=== PATIENT | female | born 1965 | race Two or more races ===

== ENCOUNTER → 2025-07-16 | Outpatient (CLI) | payer MEDICAID, SELFPAY ==
--- NOTE | 2025-07-16 15:06 | XR_ITS ---
Examination: Venous duplex lower extremity sonogram, bilateral. Date and time of exam: July 16, 2025, 1523 hours INDICATIONS: Left leg numbness and discoloration 2 weeks, difficulty walking Technique: Multiple sonographic images of the deep venous system have been obtained. B-mode/2-D grayscale imaging of vascular structures and Doppler spectral analysis (waveforms) and color performed Both legs are examined. Findings: Deep venous systems do not demonstrate abnormal echogenicity. All visualized deep veins exhibit compressibility. All visualized deep veins exhibit augmentation. Impression: Negative for deep vein thrombosis Findings most consistent with hematoma in the inner left thigh 13.3 x 2.9 x 9.5 cm, consider MRI left thigh without contrast follow-up
--- NOTE | 2025-07-16 15:23 | XR_ITS ---
EXAMINATION: PA lateral chest 2 views TECHNIQUE: Upright PA lateral chest 2 views Date and time: July 16, 2025, 1605 hours INDICATIONS: Coughing beginning 1 month ago. FINDINGS: Normal heart size The lungs are clear. Moderate thoracic spondylosis IMPRESSION: No pneumonia or pulmonary edema
== END | disposition home or self-care (01) ==
LOC: CDIM 14:50
PROVIDERS: PCP Family Medicine; Referring Provider Student in an Organized Health Care Education/Training Program; Visit Provider Student in an Organized Health Care Education/Training Program
DX: R05.3 Chronic cough (principal); L98.8 Other specified disorders of the skin and subcutaneous tissue
CPT/HCPCS: 71046; 93970

== ENCOUNTER 2025-08-06 06:50 | Inpatient (IN) | payer MEDICAID, SELFPAY ==
[2025-08-06] VITALS (8 sets, daily range): BP systolic 132–169; BP diastolic 74–94; PULSE 63–135; RESP 14–20; TEMP 36.4–37; O2SAT 95–99; BMI 42.2
--- NOTE | 2025-08-06 07:04 | EKG_ITS ---
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
--- NOTE | 2025-08-06 07:06 | XR_ITS ---
EXAMINATION: AP chest single view TECHNIQUE: AP portable semiupright chest single view Date and time: August 06, 2025, 0748 hours, comparison July 16, 2025 INDICATIONS: Mid chest pain today FINDINGS: Mild enlargement cardiac contour Mild to moderate vascular congestion. No lobar pneumonia or katherine pulmonary edema. Moderate osteopenia IMPRESSION: Mild to moderate vascular congestion No lobar pneumonia or katherine pulmonary edema
--- NOTE | 2025-08-06 07:06 | XR_ITS ---
EXAMINATION: US venous doppler LE LT HISTORY: swelling DVT COMPARISON: None. FINDINGS: Avalos scale, color doppler, and spectral waveforms of the left lower extremity veins. The imaged veins are unremarkable without evidence of internal thrombus. Spectral Doppler imaging demonstrates normal wave forms.there is a septated 8.7 x 1.3 x 3.5 cm hypo-/anechoic lesion in the popliteal fossa without internal color Doppler signal IMPRESSION: 1. Negative for deep venous thrombosis. 2. Cystic lesion in the popliteal fossa. Differential includes but is not limited to a Guzman's cyst.
--- NOTE | 2025-08-06 07:08 | PD.EDCHEST ---
ED Chest Pain RME/HPI General Chief Complaint: Chest Pain Stated Complaint: CHEST PAIN SOB Time Seen by Provider: 08/06/25 07:01 Arrival date/time: 08/06/25 06:50 Limitations: no limitations RME / HPI MD complaint: chest pain RME / HPI narrative: Patient is a 60-year-old female with medical history notable for hypertension, diabetes states in the emergency department concerns for chest pain that woke her up this morning. Denies fevers, chills, nausea, vomiting, abdominal pain, dysuria, materia, melena, bloody stools, drugs, alcohol, smoking, recent travel, sick contacts, coughing up blood, use of hormonal medications. Patient states that she felt tightness and pressure in her chest, in the past has felt palpitations however usually go away today symptoms are not going away. Patient has noticed some swelling and pain in her left lower extremity. Related Data Home Medications ?Medication ?Instructions ?Recorded ?Confirmed ergocalciferol (vitamin D2) 1,250 1,250 mcg PO QWEEK 08/07/25 08/07/25 mcg (50,000 unit) capsule evolocumab 140 mg/mL subcutaneous 420 mg subcut QMONTH 08/07/25 08/07/25 pen injector (Repluisaa Rkick) famotidine 20 mg tablet 20 mg PO BID 08/07/25 08/07/25 lisinopril 20 mg tablet 20 mg PO QDAY 08/07/25 08/07/25 magnesium oxide 400 mg (241.3 mg 400 mg PO BID 08/07/25 08/07/25 magnesium) tablet paroxetine HCl 20 mg tablet 20 mg PO QDAY 08/07/25 08/07/25 Previous Rx's ?Medication ?Instructions ?Recorded aspirin 81 mg capsule 81 mg PO QDAY #30 caps 08/07/25 blood sugar diagnostic (Accu-Chek #100 ea 08/07/25 Guide test strips) blood-glucose meter (Accu-Chek #1 ea 08/07/25 Guide Me Glucose Meter) flecainide 100 mg tablet 100 mg PO Q12H #60 tabs 08/07/25 insulin degludec 100 unit/mL (3 10 unit (0.1 mL) subcut QDAY 30 08/07/25 mL) subcutaneous pen days #15 mL metformin 500 mg tablet,extended 500 mg PO BID #60 tabs 08/07/25 release 24 hr (Glucophage XR) pen needle, diabetic 31 gauge x #100 ea 08/07/25 1/ (CareTouch Pen Needle) Allergies Allergy/AdvReac Type Severity Reaction Status Date / Time No Known Allergies Allergy Verified 08/06/25 06:56 Review of Systems Review of Systems Systems Reviewed: All systems reviewed, normal except as documented Past Medical History Past Medical History CARDIAC: Positive Hypertension ENDOCRINE: Positive Diabetes Mellitus Type 2 (PT TAKE MOUNJARO) Social History SMOKING STATUS: Never smoker ED Exam General Limitations: Present no limitations General appearance: Present alert and in no apparent distress Head Head exam: Present atraumatic Eye Eye exam: Present normal appearance, PERRL and EOMI ENT ENT exam: Present normal exam, normal oropharynx and mucous membranes moist Neck Neck exam: Present normal inspection, full ROM and trachea midline Chest Chest inspection: Present normal inspection and symmetric chest wall rise Respiratory Respiratory exam: Present normal lung sounds bilaterally Cardiovascular Cardiovascular exam: Present regular rate, normal rhythm and normal heart sounds Abdominal Exam Abdominal exam: Present soft and normal bowel sounds Extremities Exam Extremities exam: Present normal inspection and full ROM Back Exam Back exam: Present normal inspection and full ROM Neurological Exam Neurological exam: Present alert, oriented X3 and CN II-XII intact Psychiatric Psychiatric exam: Present normal affect and normal mood Skin Skin exam: Present warm, dry, intact and normal color Course Quality Measures none Orders Category Date Time Status CT Screening NOW Care 08/06/25 07:32 Completed EKG (ED ONLY) *Do not use* NOW Care 08/06/25 07:04 Completed EKG (ED ONLY) *Do not use* NOW Care 08/06/25 07:34 Completed Notify provider NOW Care 08/06/25 11:55 Completed Consult to Cardiology Stat Cons 08/06/25 11:[address] angio chest Stat Exams 08/06/25 07:32 Completed CXR [XR chest 1V] Stat Exams 08/06/25 07:06 Completed EKG (ED Only) Stat Exams 08/06/25 07:04 Draft EKG (ED Only) Stat Exams 08/06/25 07:34 Draft US venous doppler LE LT Stat Exams 08/06/25 07:06 Completed XR shoulder RT min 2V Stat Exams 08/06/25 07:33 Completed BNP [B-Type Natriuretic Peptide] Stat Lab 08/06/25 07:28 Completed CBC Stat Lab 08/06/25 07:28 Completed CMP [Comprehensive Metabolic Panel] Stat Lab 08/06/25 07:28 Completed D-Dimer Stat Lab 08/06/25 07:28 Completed Drug Screen,Urine Stat Lab 08/06/25 08:40 Completed Free T4 (Free Thyroxine) Stat Lab 08/06/25 07:28 Completed INR [Prothrombin Time with INR] Stat Lab 08/06/25 12:10 Completed Lipase Stat Lab 08/06/25 07:28 Completed PTT [Partial Thromboplastin Time] Stat Lab 08/06/25 12:10 Completed TSH [Thyroid Stimulating Hormone] Stat Lab 08/06/25 07:28 Completed Troponin I Stat Lab 08/06/25 09:57 Completed Troponin I Stat Lab 08/06/25 12:10 Completed UA, C/S IF [Urinalysis, C/S if Indicated] Stat Lab 08/06/25 08:40 Completed Urine Culture Stat Lab 08/06/25 08:40 Completed Aspirin [Ecotrin] Med 08/06/25 07:05 Discontinued 81 mg PO X1 ONE Diltiazem Inj [Cardizem Inj] Med 08/06/25 07:46 Discontinued 10 mg IV X1 ONE Heparin Inj Med 08/06/25 11:55 Discontinued 4,000 unit IV X1 ONE Heparin/D5w 25K 250 ML Ivpb [Heparin in D5w Ivpb] Med 08/06/25 12:00 Discontinued 25,000 unit in 250 ml IV 8.962 units/kg/hr Ringers Lactated 1000 ml [Lactated Ringers] 1,000 ml Med 08/06/25 07:07 Discontinued IV 999 mls/hr fentaNYL INJ [Sublimaze Inj] Med 08/06/25 07:08 Discontinued 25 mcg IVP X1 ONE Vital Signs Vital signs: Vital Signs Temperature 98.6 F 08/06/25 06:54 Pulse Rate 97 08/06/25 06:54 Respiratory Rate 18 08/06/25 06:54 Blood Pressure 146/74 H 08/06/25 06:54 Pulse Oximetry (%) 96 08/06/25 06:54 Oxygen Delivery Method Room Air 08/06/25 06:54 Pulse ox is 96% on room air which is adequate. Chest Pain MDM Narrative MDM Narrative:: Patient is a 60-year-old female to the [facility] for concerns for chest pain pressure. Concern for ACS arrhythmia electrolyte abnormality viral syndrome pneumonia pulmonary embolus among others. Patient also with right shoulder pain secondary to trauma. Concern for fracture dislocation soft tissue injury. Ordered labs EKG chest x-ray right upper extremity shoulder x-ray as well as CT angio of the chest. Provided patient with medication for symptom relief. Patient presented in atrial fibrillation with rapid ventricular response identified on multiple EKGs, patient is hemodynamically otherwise stable, provided patient with IV diltiazem that resulted in patient heart rate improvement and symptomatic relief. This is a new diagnosis of atrial fibrillation for the patient, unclear how long patient has been in atrial fibrillation Labs with leukocytosis 12.4, no left shift, no other hematologic abnormality, dimer elevated, patient bicarb 19, BUN 42 GFR 47, glucose 212, patient not in DKA. Thyroid studies unremarkable. Urinalysis without evidence of infection. Patient drug screen is positive for fentanyl however I provided patient medication for pain relief here which was fentanyl. Chest x-ray with moderate vascular congestion. Shoulder x-ray without evidence of fracture or dislocation. EKG is interpreted by Dr. Antonieta Fuchs: 6:53a Atrial fibrillation with rapid ventricular response, heart rate 119, normal QT, nonspecific T wave changes, not a cardiac alert 743: Atrial fibrillation with RVR, heart rate 124, normal QT nonspecific T wave changes not a cardiac alert 804: Atrial fibrillation, heart rate 86, normal QT, nonspecific T wave changes not a cardiac alert, this EKG is after diltiazem. On reevaluation patient hemodynamically stable not in distress, symptoms resolved CT angio of the chest without evidence of pulmonary embolus however does have vascular congestion. BNP 105 upper limit of normal lumbar test is at 100. On reevaluation patient hemodynamically stable not in distress symptoms well-controlled. Discussed admission with the hospital service. Patient data External records reviewed:: [facility] previous records Clinical information provided by:: patient Social determinants that could affect healthcare access:: none Patient has the following chronic illnesses:: See MDM How is presenting disease/condition affected by chronic disease/condition?: exacerbated by Evaluation data The following diagnostics were reviewed and interpreted by me:: lab results, radiology exam(s) and EKG tracing(s) Lab and/or radiology exams considered but not ordered:: None Interpretation Summary: Ordering Physician: Antonieta Fuchs MD Date of Service: 08/06/25 Procedure(s): XR chest 1V Accession Number(s): [id number] cc: Royal Villegas; Nitesh Lozano MD; Antonieta Fuchs MD~ EXAMINATION: AP chest single view TECHNIQUE: AP portable semiupright chest single view Date and time: August 06, 2025, 0748 hours, comparison July 16, 2025 INDICATIONS: Mid chest pain today FINDINGS: Mild enlargement cardiac contour Mild to moderate vascular congestion. No lobar pneumonia or katherine pulmonary edema. Moderate osteopenia IMPRESSION: Mild to moderate vascular congestion No lobar pneumonia or katherine pulmonary edema Dictated By: Nitesh Lozano MD Signed By: <Electronically signed by Nitesh Lozano MD in OV> 08/06/25 0800 Ordering Physician: Antonieta Fuchs MD Date of Service: 08/06/25 Procedure(s): US venous doppler LE LT Accession Number(s): [id number] cc: Royal Villegas; Ozzy Allen MD; Antonieta Fuchs MD~ EXAMINATION: US venous doppler LE LT HISTORY: swelling DVT COMPARISON: None. FINDINGS: Avalos scale, color doppler, and spectral waveforms of the left lower extremity veins. The imaged veins are unremarkable without evidence of internal thrombus. Spectral Doppler imaging demonstrates normal wave forms.there is a septated 8.7 x 1.3 x 3.5 cm hypo-/anechoic lesion in the popliteal fossa without internal color Doppler signal IMPRESSION: 1. Negative for deep venous thrombosis. 2. Cystic lesion in the popliteal fossa. Differential includes but is not limited to a Guzman's cyst. Dictated By: Ozzy Allen MD Signed By: <Electronically signed by Ozzy Allen MD in OV> 08/06/25 0952 Ordering Physician: Antonieta Fuchs MD Date of Service: 08/06/25 Procedure(s): CT angio chest Accession Number(s): [id number] cc: Royal Villegas; Ozzy Allen MD; Antonieta Fuchs MD~ EXAMINATION: CT angio chest ORDERING PROVIDER: Antonieta Fuchs MD HISTORY: PE TECHNIQUE: Volumetric, helical CT was used to obtain a CT angiogram of the chest with intravenous contrast using pulmonary embolism protocol. Additional 2-D, 3-D, and MIPS reconstructions are created on a separate workstation and submitted for interpretation. Institutional dose reducing protocols were utilized. Imaging was obtained after the uneventful intravenous administration of 100 cc Isovue 370. RADIATION DOSE: DLP 442 mGy-cm COMPARISON: 08/06/2025, 07/16/2025, chest radiographs.. FINDINGS: PULMONARY VASCULATURE: Pulmonary artery trunk measures upper limits of normal at 3.3 cm. No pulmonary embolism identified through the segmental pulmonary arteries. AORTA AND GREAT VESSELS: Mild calcific disease ascending aorta and aortic arch. Retropharyngeal course of the common carotid arteries. Moderate narrowing of the celiac axis and SMA origin. LUNG: No pulmonary nodule. No mass. Mildly increased interstitial markings. Some heterogeneously increased primarily peripheral attenuation. PLEURAL SPACE: No pleural effusion or pneumothorax. HEART: Mild cardiomegaly. MEDIASTINUM: Moderate coronary artery calcifications. AIRWAYS: Major airways unremarkable. OTHER: No significant. CHEST WALL: Normal. UPPER ABDOMEN: Status post cholecystectomy. BONES: Subacute fracture right posterior 11th rib. IMPRESSION: 1. No CT evidence for pulmonary embolism. 2. Findings which can be seen with mild positive fluid balance. 3. Subacute fracture right posterior 11th rib. 4. Retropharyngeal course of common carotid arteries. Attention on any future head and neck surgery. Dictated By: Ozzy Allen MD Signed By: <Electronically signed by Ozzy Allen MD in [place]> 08/06/25 1004 Ordering Physician: Antonieta Fuchs MD Date of Service: 08/06/25 Procedure(s): XR shoulder RT min 2V Accession Number(s): [id number] cc: Royal Villegas; Nitesh Lozano MD; Antonieta Fuchs MD~ Examination: Shoulder, right, 3 views Technique: Shoulder AP internal rotation, AP external rotation, Y view shoulder, 3 views Exam date and time : August 06, 2025, 0752 hours INDICATIONS: Patient fell 1 week ago with injury of the shoulder, shoulder pain. FINDINGS: No shoulder fracture or dislocation No foreign body IMPRESSION: No shoulder fracture or dislocation Dictated By: Nitesh Lozano MD Signed By: <Electronically signed by Nitesh Lozano MD in OV> 08/06/25 0826 Medications / Prescriptions Medications or Prescriptions considered but not ordered:: None Medication administrations:: Medication Administration History Discontinued Medications Acetaminophen (Acetaminophen 325 Mg Tablet) 650 mg PO Q6HR PRN PRN Reason: PAIN SCALE 1-3 (mild Stop: 09/05/25 19:15 Last Admin: 08/06/25 19:23 Dose: 650 mg Documented By: WB Acetaminophen (Acetaminophen 325 Mg Tablet) 650 mg PO X1 ONE Stop: 08/07/25 00:40 Last Admin: 08/07/25 00:58 Dose: 650 mg Documented By: WB Adenosine (Adenosine Inj 3 Mg/Ml Vial) Confirm Administered Dose 6 mg .ROUTE .STK-MED ONE Stop: 08/07/25 08:13 Last Admin: 08/07/25 09:24 Dose: Not Given Documented By: CU Non-Admin Reason: Override Medication Aspirin (Aspirin Ec 81 Mg Tabec) 81 mg PO X1 ONE Stop: 08/06/25 07:06 Last Admin: 08/06/25 07:44 Dose: 81 mg Documented By: DB Atropine Sulfate (Atropine Sulf Inj 1 Mg/Ml Vial) Confirm Administered Dose 1 mg .ROUTE .STK-MED ONE Stop: 08/07/25 08:13 Last Admin: 08/07/25 09:25 Dose: Not Given Documented By: CU Non-Admin Reason: Override Medication Dextrose (Dextrose 50%-Water Inj 50 Ml Syringe) 25 ml IV Q15MIN PRN PRN Reason: BG 50-70 responsive npo pt Stop: 09/05/25 15:21 Dextrose (Dextrose 50%-Water Inj 50 Ml Syringe) 50 ml IV Q15MIN PRN PRN Reason: BG <50 OR BG <70 & pt unresponsive Stop: 09/05/25 15:21 Diltiazem HCl (Diltiazem Inj 5 Mg/Ml Vial 5 Ml) 10 mg IV X1 ONE Stop: 08/06/25 07:47 Last Admin: 08/06/25 07:50 Dose: 10 mg Documented By: EUGENIO Epinephrine HCl (Epinephrine Inj 0.1 Mg/Ml Syringe 10ml) Confirm Administered Dose 1 mg .ROUTE .STK-MED ONE Stop: 08/07/25 08:14 Last Admin: 08/07/25 09:25 Dose: Not Given Documented By: CU Non-Admin Reason: Override Medication Fentanyl Citrate (Fentanyl Cit Inj 50 Mcg/Ml Amp 2ml) 25 mcg IVP X1 ONE Stop: 08/06/25 07:09 Last Admin: 08/06/25 07:37 Dose: 25 mcg Documented By: EUGENIO Fentanyl Citrate (Fentanyl Cit Inj 50 Mcg/Ml Amp 2ml) Confirm Administered Dose 100 mcg .ROUTE .STK-MED ONE Stop: 08/07/25 08:12 Last Admin: 08/07/25 09:24 Dose: Not Given Documented By: CU Non-Admin Reason: Override Medication Flumazenil (Flumazenil Inj 0.1 Mg/Ml Vial 10 Ml) Confirm Administered Dose 1 mg .ROUTE .STK-MED ONE Stop: 08/07/25 08:13 Last Admin: 08/07/25 09:25 Dose: Not Given Documented By: CU Non-Admin Reason: Override Medication Glucagon (Glucagon Inj 1 Mg Vial) 1 mg IM Q15MIN PRN PRN Reason: BG <70, and no IV access Heparin Sodium (Porcine) (Heparin Sod Inj 5000 Unit/Ml Vial) 4,000 unit IV X1 ONE; Protocol Stop: 08/06/25 11:56 Last Admin: 08/06/25 14:05 Dose: 4,000 unit Documented By: EUGENIO Co-signed By: SUPA Comments: medication delayed due to Pharm just cleared this Med Heparin Sodium (Porcine) (Heparin Sod Inj 5000 Unit/Ml Vial) 4,000 unit IVP X1 ONE Stop: 08/06/25 21:25 Last Admin: 08/06/25 21:35 Dose: 4,000 unit Documented By: WB Co-signed By: DEBRA Heparin Sodium (Porcine) (Heparin Sod Inj 5000 Unit/Ml Vial) 4,000 unit IVP X1 ONE Stop: 08/07/25 04:23 Last Admin: 08/07/25 04:40 Dose: 4,000 unit Documented By: WB Co-signed By: Heparin Sodium (Porcine) (Heparin Sod Inj 1000 Unit/Ml Vial 10 Ml) Confirm Administered Dose 40,000 unit .ROUTE .STK-MED ONE Stop: 08/07/25 08:14 Last Admin: 08/07/25 09:27 Dose: Not Given Documented By: CU Non-Admin Reason: Override Medication Lactated Ringer's (Lactated Ringers) 1,000 mls @ 999 mls/hr IV .Q1H1M ONE Stop: 08/06/25 08:07 Last Infusion: 08/06/25 08:43 Dose: Infused Documented By: Admin: 08/06/25 07:41 Dose: 999 mls/hr Documented By: EUGENIO Heparin Sodium/Dextrose (Heparin In D5w Ivpb) 25,000 unit in 250 mls @ 10 mls/hr IV .Q24H [facility]; Protocol Stop: 08/20/25 11:59 Last Titration: 08/07/25 06:00 Dose: 0 units/kg/hr, 0 mls/hr Documented By: TEVIN Co-signed By: Titration: 08/07/25 04:39 Dose: 16.96 units/kg/hr, 18.925 mls/hr Documented By: TEVIN Co-signed By: Titration: 08/06/25 21:36 Dose: 12.96 units/kg/hr, 14.461 mls/hr Documented By: TEVIN Co-signed By: AM Admin: 08/06/25 14:06 Dose: 8.962 units/kg/hr, 10 mls/hr Documented By: EUGENIO Co-signed By: SUPA Nitroglycerin/Dextrose (Nitroglycerin In D5w Ivpb) Confirm Administered Dose 50 mg in 250 mls @ ud .ROUTE .STK-MED ONE Stop: 08/07/25 08:15 Last Admin: 08/07/25 09:27 Dose: Not Given Documented By: CU Non-Admin Reason: Override Medication Magnesium Sulfate (Magnesium Sulfate Ivpb) 2 gm in 50 mls @ 25 mls/hr IV X1 ONE Stop: 08/07/25 10:25 Last Admin: 08/07/25 12:33 Dose: 25 mls/hr Documented By: DIAMOND Sodium Chloride (Ns) 500 mls @ 100 mls/hr IV .Q5H ELPIDIO Stop: 09/06/25 08:59 Insulin Degludec (Insulin Degludec 5 Unit/0.05 Ml (Per 5 Units)) 10 unit SC QDAY ELPIDIO Stop: 09/05/25 20:59 Last Admin: 08/07/25 08:47 Dose: Not Given Documented By: DIAMOND Non-Admin Reason: @ medical lab assistant for cardiac cath Admin: 08/06/25 20:14 Dose: 10 unit Documented By: TEVIN Co-signed By: SHAYNE Insulin Human Lispro (Insulin Lispro (Admelog) 1 Unit/0.01 Ml Unit) 0 unit SC ACHS [facility]; Protocol Stop: 09/05/25 15:29 Last Admin: 08/07/25 12:19 Dose: Not Given Documented By: DIAMOND Non-Admin Reason: Per Protocol Admin: 08/07/25 08:11 Dose: Not Given Documented By: JRR Non-Admin Reason: Per Protocol Admin: 08/06/25 20:15 Dose: 3 unit Documented By: TEVIN Co-signed By: SHAYNE Admin: 08/06/25 17:00 Dose: Not Given Documented By: JRR Non-Admin Reason: Per Protocol Lidocaine HCl (Lidocaine Inj Pf 1% 30 Ml Vial) Confirm Administered Dose 30 ml .ROUTE .STK-MED ONE Stop: 08/07/25 08:14 Last Admin: 08/07/25 09:27 Dose: Not Given Documented By: CU Non-Admin Reason: Override Medication Metoprolol Tartrate (Metoprolol Tartrate Inj 1 Mg/Ml Vial 5 Ml) Confirm Administered Dose 5 mg .ROUTE .STK-MED ONE Stop: 08/07/25 08:13 Last Admin: 08/07/25 09:25 Dose: Not Given Documented By: CU Non-Admin Reason: Override Medication Midazolam HCl (Midazolam Inj 1 Mg/Ml Vial 2 Ml) Confirm Administered Dose 2 mg .ROUTE .STK-MED ONE Stop: 08/07/25 08:12 Last Admin: 08/07/25 09:24 Dose: Not Given Documented By: CU Non-Admin Reason: Override Medication Naloxone HCl (Naloxone Inj 0.4 Mg/Ml Vial) Confirm Administered Dose 0.4 mg .ROUTE .STK-MED ONE Stop: 08/07/25 08:13 Last Admin: 08/07/25 09:25 Dose: Not Given Documented By: CU Non-Admin Reason: Override Medication Ondansetron HCl (Ondansetron Inj 2 Mg/Ml Inj 2 Ml) Confirm Administered Dose 4 mg .ROUTE .STK-MED ONE Stop: 08/07/25 08:13 Last Admin: 08/07/25 09:25 Dose: Not Given Documented By: CU Non-Admin Reason: Override Medication Phenylephrine HCl (Phenylephrine Inj In Ns 100 Mcg/Ml 10 Ml Syringe) Confirm Administered Dose 1,000 mcg .ROUTE .STK-MED ONE Stop: 08/07/25 08:14 Last Admin: 08/07/25 09:27 Dose: Not Given Documented By: CU Non-Admin Reason: Override Medication Verapamil HCl (Verapamil Inj 2.5 Mg/Ml Vial 2 Ml) Confirm Administered Dose 5 mg .ROUTE .STK-MED ONE Stop: 08/07/25 08:24 Last Admin: 08/07/25 09:27 Dose: Not Given Documented By: CU Non-Admin Reason: Override Medication See above Consultations Consultation(s) initiated? (list below): Yes Consultation #1 (Physician, Specialty, Details): I spoke with hospitalist team B for admission. Time: 11:22 Consultation #2 (Physician, Specialty, Details): I spoke with hotel or motel manager Dr. Perez. Discussed patients PMHx, HPI, ED course, exam findings, labs, and radiology results. He agrees with management and Heparin. Time: 11:53 Diagnosis Chest Pain Differential Diagnosis: other Most likely diagnosis given after review of the tests above:: Chest pain, shortness of breath, elevated troponin, atrial fibrillation with rapid ventricular response Admission Indicated Admission indicated?: indicated Admission Request Was there a request for admission?: Yes Admission Attestation Admission request attestation: Discussed case with [] from Hospitalist service regarding admission. Discussed patients ED course, exam findings, labs, and radiology results. The Hospitalist [agrees,declines] to accept the patient for admission. Disposition Plan Disposition Plan: Admit Discharge Plan Plan Patient Disposition: Admit Acute Care w/in Hospital Patient condition on transfer: Stable Problem List Clinical Impression: Chest pain, Atrial fibrillation with RVR, Shortness of breath, Elevated troponin Patient/Caregiver Discharge Instructions Discharge Activity: activity as tolerated
--- NOTE | 2025-08-06 07:32 | XR_ITS ---
EXAMINATION: CT angio chest ORDERING PROVIDER: Antonieta Fuchs MD HISTORY: PE TECHNIQUE: Volumetric, helical CT was used to obtain a CT angiogram of the chest with intravenous contrast using pulmonary embolism protocol. Additional 2-D, 3-D, and MIPS reconstructions are created on a separate workstation and submitted for interpretation. Institutional dose reducing protocols were utilized. Imaging was obtained after the uneventful intravenous administration of 100 cc Isovue 370. RADIATION DOSE: DLP 442 mGy-cm COMPARISON: 08/06/2025, 07/16/2025, chest radiographs.. FINDINGS: PULMONARY VASCULATURE: Pulmonary artery trunk measures upper limits of normal at 3.3 cm. No pulmonary embolism identified through the segmental pulmonary arteries. AORTA AND GREAT VESSELS: Mild calcific disease ascending aorta and aortic arch. Retropharyngeal course of the common carotid arteries. Moderate narrowing of the celiac axis and SMA origin. LUNG: No pulmonary nodule. No mass. Mildly increased interstitial markings. Some heterogeneously increased primarily peripheral attenuation. PLEURAL SPACE: No pleural effusion or pneumothorax. HEART: Mild cardiomegaly. MEDIASTINUM: Moderate coronary artery calcifications. AIRWAYS: Major airways unremarkable. OTHER: No significant. CHEST WALL: Normal. UPPER ABDOMEN: Status post cholecystectomy. BONES: Subacute fracture right posterior 11th rib. IMPRESSION: 1. No CT evidence for pulmonary embolism. 2. Findings which can be seen with mild positive fluid balance. 3. Subacute fracture right posterior 11th rib. 4. Retropharyngeal course of common carotid arteries. Attention on any future head and neck surgery.
--- NOTE | 2025-08-06 07:33 | XR_ITS ---
Examination: Shoulder, right, 3 views Technique: Shoulder AP internal rotation, AP external rotation, Y view shoulder, 3 views Exam date and time : August 06, 2025, 0752 hours INDICATIONS: Patient fell 1 week ago with injury of the shoulder, shoulder pain. FINDINGS: No shoulder fracture or dislocation No foreign body IMPRESSION: No shoulder fracture or dislocation
--- NOTE | 2025-08-06 07:34 | EKG_ITS ---
[facility] Test Date: 2025-08-06 Pat Name: HIEU SMITH Department: Room: - Gender: Female Ice Maker: : 1965 Requested By: Antonieta Diaz Order Number: [id number] Reading MD: Antonieta Diaz Measurements Intervals [place] Rate: 96 P: HI: QRS: 22 QRSD: 96 T: 80 QT: 341 QTc: 431 Interpretive Statements ATRIAL FIBRILLATION NONSPECIFIC T-WAVE ABNORMALITY ABNORMAL RHYTHM ECG Compared to ECG 08/06/2025 07:43:22 No significant changes /store/S0/[id number].pdf
[2025-08-06] MEDS: fentaNYL CIT INJ 50 mCg/ML AMP 2ML 25 MCG IVP (07:37)
[2025-08-06] MEDS: RINGERS LACTATED 1000 ML 1,000 ML 999 ML IV (07:41)
[2025-08-06] MEDS: ASPIRIN EC 81 MG TABEC PO (07:44)
[2025-08-06] MEDS: DILTIAZEM INJ 5 MG/ML VIAL 5 ML 10 MG IV (07:50)
[2025-08-06 07:53] LABS: Basophils # (Auto) 0.0 Thou/mm3 (0.0-0.2); Basophils % (Auto) 0 % (0-2.5); Eosinophils # (Auto) 0.0 Thou/mm3 (0.0-0.5); Eosinophils % (Auto) 0 % (0-10); Hematocrit 38.5 % (36.0-46.0); Hemoglobin 12.6 g/dL (12.0-16.0); Immature Granulocytes Auto 0.10 Thou/mm3 (0.00-0.00); Lymphocytes # (Auto) 1.9 Thou/mm3 (1.0-4.8); Lymphocytes % (Auto) 15 % (10-50); Mean Corpuscular HGB Conc 32.7 g/dl (31.0-37.0); Mean Corpuscular Hemoglobin 28.6 pg (25.0-35.0); Mean Corpuscular Volume 88 fL (80-100); Monocytes # (Auto) 0.6 Thou/mm3 (0.0-0.8); Monocytes % (Auto) 5 % (0-12); Neutrophils # (Auto) 9.9 Thou/mm3 (1.8-7.7); Neutrophils % (Auto) 79 % (37-80); Nucleated Red Blood Cell # 0.00 Thou/mm3 (0.00-0.00); Nucleated Red Blood Cell % 0 /100 WBC (0); Platelet Count 342 Thou/mm3 (140-440); RDW Standard Deviation 49.5 fL (36.4-46.3); Red Blood Count 4.40 Miln/mm3 (4.00-5.20); White Blood Count 12.4 Thou/mm3 (3.6-11.0)
[2025-08-06 08:06] LABS: Alanine Aminotransferase 45 U/L (10-49); Albumin, Serum 4.5 gm/dL (3.4-4.8); Albumin/Globulin Ratio 1.7 (1.2-2.2); Alkaline Phosphatase 174 U/L (46-116); Anion Gap 14 (7-16); Aspartate Amino Transferase 20 U/L (0-34); BUN/Creatinine Ratio 32 Ratio (12-20); Bilirubin,Total 0.2 mg/dL (0.3-1.2); Blood Urea Nitrogen 42 mg/dL (9-23); Calcium 9.3 mg/dL (8.3-10.6); Calcium (Corrected) 9.3 mg/dL (8.5-10.1); Carbon Dioxide 19.0 mMol/L (20.0-31.0); Chloride 106 mMol/L (98-107); Creatinine (Component) 1.3 mg/dL (0.6-1.3); Estimated Creatinine Clearance 55.6 mL/min (>60); Free T4 (Free Thyroxine) 1.01 ng/dL (0.89-1.76); Globulin 2.6 gm/dL (2.3-3.5); Glucose 312 mg/dL (74-106); Lipase 39 U/L (12-53); Osmolality,Calculated 300 (275-295); Potassium 4.4 mMol/L (3.4-5.1); Sodium 139 mMol/L (136-145); Thyroid Stimulating Hormone 0.94 uIU/mL (0.55-4.78); Total Protein 7.1 gm/dL (5.7-8.2); eGFR 47 See Note
[2025-08-06 08:30] LABS: D-Dimer 1010 ng/mL (<600)
[2025-08-06 08:35] LABS: B-Type Natriuretic Peptide 105 pg/mL (0-100)
[2025-08-06 08:45] LABS: Collection Type, Urine Clean Catch
[2025-08-06 09:02] LABS: Amphetamine/Methamp Scrn,U Negative (Negative); Barbiturate Screen,Urine Negative (Negative); Benzodiazepines Screen,Urine Negative (Negative); Benzoylecgonine Screen, Ur Negative (Negative); Fentanyl Screen,Urine Positive (Negative); Opiate Screen,Urine Negative (Negative); THC Screen,Urine Negative (Negative)
[2025-08-06 09:22] LABS: Bilirubin,Urine Negative (Negative); Blood,Urine Negative (Negative); Clarity,Urine Clear (Clear/Hazy); Glucose, Urine 4+ (Negative); Ketones,Urine Negative (Negative); Leukocyte Esterase,Urine Negative (Negative); Nitrite,Urine Positive (Negative); PH,Urine 6.0 (5.0-7.0); Protein,Urine Negative (Neg - Trace); RBC,Urine < 1 /hpf (0-3); Specific Gravity,Urine 1.022 (1.001-1.035); Squamous Epithelial Cell,Urine 1 /hpf (0-5); Urobilinogen,Urine Negative mg/dL (0.0-1.0); WBC,Urine 2 /hpf (0-5)
[2025-08-06 09:26] LABS: Bacteria,Urine 2+; Color,Urine Lt-Yellow (Lt Yel-Yel); Culture Indicated,Urine Yes
[2025-08-06 10:49] LABS: Troponin I 0.082 ng/mL (0.0-0.045)
--- NOTE | 2025-08-06 12:04 | PC.SS ---
Patient Sue Brandt is a 60 Year old female admitted for chest pain SOB. SS met with patient at bedside to discuss discharge plan and verify demographic information. Patient reports she lives at home with her life partner. Patient reports her surrogate decision maker is her son, Doug Payne, [phone]. Patient reports she does not utilize any source of DME to assist with ambulation. Patient is able to complete all ADL's independently. Choice of pharmacy is [facility]. PCP is Royal Blake. Patient reports she was in the process of getting referred to a wrapper and preserver. At time of discharge the patient reports she will return back home. Patient's son will provide transportation. Discharge plan: Home Next of kin: Son, Doug Payne PCP Royal Blake
[2025-08-06 12:58] LABS: INR 0.9 (0.9-1.3); Partial Thromboplastin Time 23.9 Seconds (22.0-36.0); Prothrombin Time 9.9 Seconds (9.0-12.2)
[2025-08-06] MEDS: HEPARIN SOD INJ 5000 UNIT/ML VIAL 4000 UNIT IV (14:05)
[2025-08-06] MEDS: Heparin/D5w 25K 250 ML Ivpb 25,000 UNIT/250 ML BAG 10 UNIT IV (14:06)
--- NOTE | 2025-08-06 14:14 | ESCONSULT_ITS ---
<Statement entered by Ananya Perez MD - 08/09/25 15:32> Personally evaluated examined the patient with resident physician PGY 1Dr. Ozzy Best patient presented to the hospital A-fib RVR severe chest pain mild troponin elevation though significant elevation after 1.0 delta troponin elevation hence because of risk factors of CAD obesity hypertension diabetes metabolic syndrome coronary angiogram will be recommended evaluated patient with resident physician agree with the treatment plan recommendations. Continue IV heparin until echo or angiogram was performed. HPI Data of Consult Requesting Physician: Steven Baker DO Admitting Provider: Steven Baker DO Attending Provider: Steven Baker DO Primary Care Provider: Royal Villegas Consult Narrative Reason for consult: new onset afib History of present illness: History of present illness: Patient is a 60 yo F with PMH of HTN, T2DM, depression presenting to hospital for new-onset chest pain/palpitations. At approximately 4 AM today, patient began experience chest pain and palpitations that did not improve; she then came to the hospital. EKG showed A-fib with RVR, rate of 124. Was given 10mg diltiazem 1x; subsequent EKG showed continued A-fib, but with a rate of 96. On phyiscal exam, patienet reported improved pain; she also reported R arm/leg pain secondary to slip and fall accident 1 week prior. Has no history of chest pain/shortness of breath. Strong family history of CAD, with siblings and parents all having heart attacks or strokes. CXR showed no pneumonia, pulomary edema and mild/moderate vascular congestion. Venous duplex scan negative for DVT, and CTA negative for PE. Cardiology consulted secondary to new onset A-fib. PMH: HTN, T2DM, depression PSH: c section, cholescytectomy Allergies: NKDA Social history: no etoh , smoking, drugs cc:: cc: Steven Baker DO Review of Systems Review of Systems Narrative Review of Systems: General: Denies fevers or chills HEENT: Denies congestion or sore throat Heart: Endorses chest pain and palpitations Lungs: Denies shortness of breath or cough Abdomen: Denies diarrhea, nausea or vomiting, constipation, BRBPR, melena Genitourinary: Denies frequency, urgency, dysuria, hematuria Musculoskeletal: Endorses R shoulder pain Neurology: Denies numbness, tingling ROS otherwise negative except what is mentioned above. Exam Vital Signs Temp Pulse Resp BP Pulse Ox O2 Del Method 97.9 F 101 H 20 132/90 H 97 Room Air 08/06/25 10:44 08/06/25 12:09 08/06/25 12:09 08/06/25 12:09 08/06/25 12:09 08/06/25 12:09 Narrative Exam General: A/O x3, no acute distress, well-nourished, well-developed Eyes: PERRL, EOMI. Anicteric, vision grossly intact. Ears: No ear pain, no ear discharge, Hearing grossly intact. Nose: No nasal discharge. Mouth/Throat: Moist mucous membranes, no redness, no lesions. Neck: Neck supple, non-tender, no cervical lymphadenopathy. Lungs: Clear MATTY to auscultation and percussion, No accessory muscle use. Cardio: Normal S1/S2, regular rhythm, no murmurs, no JVD or carotid bruits. Abdomen: Soft, non-tender, no palpable masses, peristalsis present, no guarding or rebound. Extremities: Symmetrical, no significant deformities, no peripheral edema , non-tender, peripheral pulses present. Skin: No rashes, no lesions, warm to touch. Neuro: No focal neurological deficits. Psych: Cooperative, appropriate mood and effect. Results Labs 08/07/25 03:45 08/07/25 03:45 Labs: Short CBC 08/06/25 Range/Units 07:28 WBC 12.4 H (3.6-11.0) Thou/mm3 Hgb 12.6 (12.0-16.0) g/dL Hct 38.5 (36.0-46.0) % Plt Count 342 (140-440) Thou/mm3 BMP 08/06/25 07:28 Sodium 139 Potassium 4.4 Chloride 106 Carbon Dioxide 19.0 L BUN 42 H Creatinine 1.3 Glucose 312 H Calcium 9.3 Cardiac Enzymes 08/06/25 Range/Units 09:57 Troponin I 0.082 H* (0.0-0.045) ng/mL Liver Function 08/06/25 Range/Units 07:28 Total Bilirubin 0.2 L (0.3-1.2) mg/dL AST 20 (0-34) U/L ALT 45 (10-49) U/L Alkaline Phosphatase 174 H (46-116) U/L Albumin 4.5 (3.4-4.8) gm/dL Urine 08/06/25 Range/Units 08:40 Urine Color Lt-Yellow (Lt Yel-Yel) Urine Clarity Clear (Clear/Hazy) Urine pH 6.0 (5.0-7.0) Ur Specific [place] 1.022 (1.001-1.035) Urine Protein Negative (Neg - Trace) Urine Glucose (UA) 4+ A (Negative) Quality Measures Quality Measures none Medications Home Medications and Allergies Home Medications ?Medication ?Instructions ?Recorded ?Confirmed ?Type ergocalciferol (vitamin D2) 1,250 1,250 mcg PO QWEEK 1 10/07/24 08/07/25 History mcg (50,000 unit) capsule evolocumab 140 mg/mL subcutaneous 420 mg subcut QMONTH 08/07/25 08/07/25 History pen injector (Sangeetha Richard) famotidine 20 mg tablet 20 mg PO BID 08/07/25 History lisinopril 20 mg tablet 20 mg PO QDAY 08/07/2508/07 History magnesium oxide 400 mg (241.3 mg 400 mg PO BID 5 08/07/25 History magnesium) tablet paroxetine HCl 20 mg tablet 20 mg PO QDAY 08/07/25 History Allergies Allergy/AdvReac Type Severity Reaction Status Date / Time No Known Allergies Allergy Verified 08/06/25 06:56 Visit Medications Heparin Sodium/Dextrose (Heparin In D5w Ivpb) 25,000 unit in 250 mls @ 10 mls/hr IV .Q24H [facility]; Protocol Stop: 08/20/25 11:59 Last Admin: 08/06/25 14:06 Dose: 8.962 units/kg/hr, 10 mls/hr Discontinued Medications Aspirin (Aspirin Ec 81 Mg Tabec) 81 mg PO X1 ONE Stop: 08/06/25 07:06 Last Admin: 08/06/25 07:44 Dose: 81 mg Diltiazem HCl (Diltiazem Inj 5 Mg/Ml Vial 5 Ml) 10 mg IV X1 ONE Stop: 08/06/25 07:47 Last Admin: 08/06/25 07:50 Dose: 10 mg Fentanyl Citrate (Fentanyl Cit Inj 50 Mcg/Ml Amp 2ml) 25 mcg IVP X1 ONE Stop: 08/06/25 07:09 Last Admin: 08/06/25 07:37 Dose: 25 mcg Heparin Sodium (Porcine) (Heparin Sod Inj 5000 Unit/Ml Vial) 4,000 unit IV X1 ONE; Protocol Stop: 08/06/25 11:56 Last Admin: 08/06/25 14:05 Dose: 4,000 unit Lactated Ringer's (Lactated Ringers) 1,000 mls @ 999 mls/hr IV .Q1H1M ONE Stop: 08/06/25 08:07 Last Infusion: 08/06/25 08:43 Dose: Infused Assessment & Plan Plan Patient is a 60 yo F with PMH of HTN, T2DM, depression presenting to hospital for new-onset chest pain/palpitations. Cardiology consulted secondary to new onset A-fib. #New-onset atrial fibrillation No history of chest pain/shortness of breath. Strong family history of CAD. CXR showed no pneumonia, pulomary edema and mild/moderate vascular congestion. Venous duplex scan negative for DVT, and CTA negative for PE Troponin initially 0.082 on admission; last troponin was 0.123 Echo showed EF 60-65% EKG showed A-fib with rate 96 post diltiazem [id number] score 3, HAS-Bled score 0 Plan: Trend troponin Cardiac cath tomorrow to check for stenosis due to risk factors and increasing troponin Hold heparin at midnight NPO after midnight #Hx of Hypertension BP 146/64 on admission; latest measurement showed 142/77 Plan: Monitor BP and treat as needed #T2DM #Depression #Musculoskeletal pain #Rib fracture Per primary team This case was discussed with my attending physician, Dr. Perez. Gary Best, PGY1
[2025-08-06 14:18] LABS: Troponin I 0.123 ng/mL (0.0-0.045)
--- NOTE | 2025-08-06 14:34 | ECHO_ITS ---
Patient Info Name: Sue Brandt Age: 60 years : 1965 Gender: Female Ht: 163 cm Wt: 112 kg BSA: 2.30 m2 BP: 142 / 77 mmHg HR: 63 bpm Exam Date: 08/06/2025 3:15 PM Admit Date: 08/06/2025 Site: [facility] Room Number: ER Patient Status: I Exam Type: CA echo doppler complete Pediatric Physical Therapist: Paris Lamb Ordering Physician: Ananya Perez Study Info Indications afib chf - Primary Location: [facility] Left Ventricular Outflow Tract Name Value Normal LVOT 2D LVOT Diameter 1.8 cm LVOT Doppler LVOT Peak Velocity 117 cm/s LVOT Mean Gradient 3 mmHg LVOT VTI 32 cm LVOT VTI/AV VTI Ratio 0.6 LVOT Stroke Volume 80 ml Pulmonic Valve Name Value Normal PV Doppler PV Peak Velocity 102 cm/s Mitral Valve Name Value Normal MV Doppler MV Decel [place] 328 cm/s2 MV PHT 66 ms MV Area (PHT) 3.3 cm2 4.0-5.0 MV Diastolic Function MV E Peak Velocity 75 cm/s MV A Peak Velocity 90 cm/s MV E/A 0.8 MV Annular TDI MV Septal e' Velocity 7.1 cm/s MV E/e' (Septal) 10.6 MV Lateral e' Velocity 5.1 cm/s MV E/e' (Lateral) 14.7 MV e' Average 6.09 cm/s MV E/e' (Average) 12.7 Tricuspid Valve Name Value Normal TV Regurgitation Doppler TR Peak Velocity 284 cm/s Estimated PAP/RSVP RA Pressure 3 mmHg <=5 PA Systolic Pressure 35 mmHg <36 RV Systolic Pressure 35 mmHg <36 Aortic Valve Name Value Normal AV 2D/MM AV Cusp Sep (MM) 1.1 cm AV Doppler AV Peak Velocity 214 cm/s AV Mean Gradient 11 mmHg AV VTI 49 cm AV Area (Cont Eq VTI) 1.6 cm2 >=3.0 AV Area (Cont Eq [place]) 1.4 cm2 AV DI ([place]) 0.55 AV Regurgitation 2D LVOT Area 2.5 cm2 Ventricles Name Value Normal LV Dimensions 2D/MM IVS Diastolic Thickness (2D) 0.8 cm 0.6-0.9 LVID Diastole (2D) 3.4 cm 3.8-5.2 LVIW Diastolic Thickness (2D) 0.9 cm 0.6-0.9 LVID Systole (2D) 2.2 cm 2.2-3.5 LVOT Diameter 1.8 cm LV Mass (2D Cubed) 78.26 g 67.00-162.00 LV Mass Index (2D Cubed) 34 g/m2 43-95 Relative Wall Thickness (2D) 0.53 <=0.42 IVS/LVIW Diastolic Thickness (2D) 0.89 0.00-1.50 LV Fractional Shortening/Ejection Fraction 2D/MM LV Fractional Shortening (2D) 35 % 27-45 LV EF (2D Teichholz) 66 % Atria Name Value Normal LA Dimensions LA Volume (4C A-L) 49 ml LA Volume (BP A-L) 58 ml Left Ventricle Left ventricular chamber dimension is normal. Left ventricular systolic function is normal with visually estimated ejection fraction of 60-65%. There is concentric remodeling noted in the left ventricle. Left ventricular segmental wall motion is normal. There is indeterminate diastolic function in the left ventricle. Right Ventricle Right ventricular chamber dimension is normal. Right ventricular systolic function is normal. Left Atrium Left atrial chamber dimension is mildly enlarged. Right Atrium Right atrial chamber dimension is normal. Aortic Valve The aortic valve is trileaflet. There is mild aortic valve sclerosis. There is no aortic valve stenosis with a peak velocity of 214 cm/s, mean gradient of 11 mmHg, and aortic valve area of 1.6 cm2. There is no aortic valve regurgitation. Pulmonic Valve The pulmonic valve is normal. There is no pulmonic valve stenosis. There is no pulmonic regurgitation. Mitral Valve The mitral valve has thickened leaflets. There is no mitral valve stenosis. There is trace mitral valve regurgitation. Calcification vs Veggie on Posterior Mitral Valve. Tricuspid Valve The tricuspid valve leaflets are normal. There is no tricuspid valve stenosis. There is mild tricuspid valve regurgitation. No pulmonary hypertension, estimated pulmonary arterial systolic pressure is 35 mmHg and systemic blood pressure of 142 mmHg in systole. Pericardium/Pleural The pericardium appears normal. There is no pericardial effusion. No pleural effusion visualized. Inferior Vena Cava Normal inferior vena cava with >50% collapse upon inspiration consistent with normal right atrial pressure, 3 mmHg. Aorta The aortic measurements are indexed to age and body surface area. The aortic root at the sinus of Valsalva is not well visualized. The prox ascending aorta is not well visualized. Summary 1. Left ventricle size is normal and systolic function is normal. Estimated ejection fraction is 60-65%. 2. Right ventricle chamber size is normal and systolic function is normal. Estimated RVSP is 35 mmHg. 3. There is mild aortic valve sclerosis with no stenosis and no regurgitation. 4. There is trace mitral valve regurgitation. 5. The mitral valve has thickened leaflets. 6. Calcification vs Veggie on Posterior Mitral Valve. 7. There is mild tricuspid valve regurgitation. 8. The left atrium is mildly enlarged. The right atrium is normal. 9. Normal IVC with estimated RA pressure 3 mmHg. Report Signatures Finalized by Ananya Perez on 08/06/2025 04:49 PM
--- NOTE | 2025-08-06 16:05 | ESHP_ITS ---
<Statement entered by Ladi Teran MD - 08/07/25 07:23> Patient was seen and examined by me personally. I have directly supervised and reviewed documentation by the team resident and agree with its findings with any exceptions or additional findings as below. Plan of care was discussed with the attending, Dr. Baker. Ladi Teran, PGY-3 Documentation for date of: 08/06/25 HPI History of Present Illness History of present illness: Patient is a 60-year-old F with a PMH of T2DM, HTN, and depression who presented on 08/06/2025 with a chief complaint of chest pressure. She reports that she began having a sensation of substernal pressure with associated shortness of breath starting at around 4 AM in the morning. She states that her symptoms began while she was sleeping and woke her up and that she had tried to drink water but had felt worse afterwards. She denies having any similar previous episodes as well as any other symptoms including headache, N/V, abdominal pain, and lower extremity edema. Patient reports that she was not following a machine silk screen printer in the out-patient setting but had been referred to one after her PCP expressed concern regarding the sound of her heartbeat on auscultation. Apparently, patient was told that she would be called by the machine silk screen printer's office in about 2 months' time but that this current episode had happened prior to that. In terms of her chest pressure/pain, patient still endorsed experiencing them at the time of interview but that it was less severe than before she arrived in the ED. PMH: as above PSH: , cholecystectomy Medications: lisinopril, paroxetine Allergies: NKDA FH: cardiovascular disease in parents and siblings SH: non-contributory In the ED, vitals showed: BP 146/74 HR 97 RR 18 Temp 98.6 SpO2 96% on room air CBC showed WBC 12.4 but was otherwise WNL. Coagulation panel showed D-Dimer 1010 but was otherwise WNL. CMP showed BUN 42, creatinine 1.3 (baseline possibly 1.1), blood glucose 312, troponin 0.082. UA showed 4+ glucose and 2+ bacteria. Imagin/24 CXR showed mild to moderate vascular congestion but was negative for lobar pneumonia or katherine pulmonary edema. 08/06 venous Doppler study was negative for DVT. 08/06 chest CTA was negative for pulmonary embolism but did show subacute fracture of the right posterior 11th rib. 08/06 shoulder XR was negative for shoulder fracture or dislocation. 08/06 EKG showed atrial fibrillation with RVR 124 (repeat EKG after diltiazem IV showed atrial fibrillation with rate 96). 08/06 echo showed EF 60-65%, mild aortic valve sclerosis w/o stenosis or regurgitation, trace mitral valve regurgitation, and mildly enlarged left atrium. In the ED, patient was given fentanyl IV, aspirin PO, diltiazem IV, heparin IV, 1 L IV LR fluid, and started on heparin gtt. Patient was admitted for the work-up and management of new-onset atrial fibrillation with RVR and NSTEMI. Cardiology (Dr. Perez) was consulted and is closely following the case. Review of Systems Review of Systems Systems Reviewed: All systems reviewed, normal except as documented Exam Vital Signs Temp Pulse Resp BP Pulse Ox O2 Del Method 98.0 F 63 14 142/77 H 99 Room Air 08/06/25 14:48 08/06/25 14:48 08/06/25 14:48 08/06/25 14:48 08/06/25 14:48 08/06/25 14:48 Narrative Exam General: Well-developed and well-nourished obese female in no acute distress. Skin: Warm, dry, intact, no obvious rash. Head: Normocephalic, atraumatic. Eyes: EOMI. Anicteric, vision grossly intact. Ears: No ear pain, no ear discharge, Hearing grossly intact. Nose: No nasal discharge. Mouth/Throat: Oral mucosa moist. No obvious lesions in oropharynx. Cardiovascular: Regular rate and normal rhythm, no murmur, no JVD or carotid bruits. +S1/S2. Respiratory: Bilateral lungs are clear to auscultation, respirations unlabored, no crackles, no wheezing. No accessory muscle use. Gastrointestinal: Soft, nontender, non-distended, no palpable masses. No guarding or rebound tenderness. Peristalsis present. Extremities: 3+ pitting edema up to below the knee bilaterally. Symmetrical, no significant deformities. No cyanosis, no clubbing. 2+ radial pulse bilaterally, 2+ posterior tibial pulse bilaterally. Neuro: A&O x 3. No focal deficits observed. Conversant, moving all extremities. No overt cerebellar signs/incoordination. Psychiatric: Cooperative, appropriate affect. Results: Labs 08/07/25 03:45 08/07/25 03:45 Labs: Short CBC 08/06/25 Range/Units 07:28 WBC 12.4 H (3.6-11.0) Thou/mm3 Hgb 12.6 (12.0-16.0) g/dL Hct 38.5 (36.0-46.0) % Plt Count 342 (140-440) Thou/mm3 BMP 08/06/25 07:28 Sodium 139 Potassium 4.4 Chloride 106 Carbon Dioxide 19.0 L BUN 42 H Creatinine 1.3 Glucose 312 H Calcium 9.3 Cardiac Enzymes 08/06/25 08/06/25 Range/Units 09:57 12:10 Troponin I 0.082 H* 0.123 H* (0.0-0.045) ng/mL Liver Function 08/06/25 Range/Units 07:28 Total Bilirubin 0.2 L (0.3-1.2) mg/dL AST 20 (0-34) U/L ALT 45 (10-49) U/L Alkaline Phosphatase 174 H (46-116) U/L Albumin 4.5 (3.4-4.8) gm/dL Urine 08/06/25 Range/Units 08:40 Urine Color Lt-Yellow (Lt Yel-Yel) Urine Clarity Clear (Clear/Hazy) Urine pH 6.0 (5.0-7.0) Ur Specific [place] 1.022 (1.001-1.035) Urine Protein Negative (Neg - Trace) Urine Glucose (UA) 4+ A (Negative) Quality Measures Quality Measures none Medications Home Medications and Allergies Home Medications ?Medication ?Instructions ?Recorded ?Confirmed ?Type ergocalciferol (vitamin D2) 1,250 1,250 mcg PO QWEEK 1 10/07/24 08/07/25 History mcg (50,000 unit) capsule evolocumab 140 mg/mL subcutaneous 420 mg subcut QMONTH 08/07/25 08/07/25 History pen injector (Sangeetha Richard) famotidine 20 mg tablet 20 mg PO BID 08/07/25 History lisinopril 20 mg tablet 20 mg PO QDAY 08/07/2508/07 History magnesium oxide 400 mg (241.3 mg 400 mg PO BID 08/07/2 5 08/07/25 History magnesium) tablet paroxetine HCl 20 mg tablet 20 mg PO QDAY 08/07/25 History Allergies Allergy/AdvReac Type Severity Reaction Status Date / Time No Known Allergies Allergy Verified 08/06/25 06:56 Visit Medications Dextrose (Dextrose 50%-Water Inj 50 Ml Syringe) 25 ml IV Q15MIN PRN PRN Reason: BG 50-70 responsive npo pt Stop: 09/05/25 15:21 Dextrose (Dextrose 50%-Water Inj 50 Ml Syringe) 50 ml IV Q15MIN PRN PRN Reason: BG <50 OR BG <70 & pt unresponsive Stop: 09/05/25 15:21 Glucagon (Glucagon Inj 1 Mg Vial) 1 mg IM Q15MIN PRN PRN Reason: BG <70, and no IV access Heparin Sodium/Dextrose (Heparin In D5w Ivpb) 25,000 unit in 250 mls @ 10 mls/hr IV .Q24H [facility]; Protocol Stop: 08/20/25 11:59 Last Admin: 08/06/25 14:06 Dose: 8.962 units/kg/hr, 10 mls/hr Insulin Degludec (Insulin Degludec 5 Unit/0.05 Ml (Per 5 Units)) 10 unit SC QDAY [facility] Stop: 09/05/25 20:59 Insulin Human Lispro (Insulin Lispro (Admelog) 1 Unit/0.01 Ml Unit) 0 unit SC ACHS [facility]; Protocol Stop: 09/05/25 15:29 Discontinued Medications Aspirin (Aspirin Ec 81 Mg Tabec) 81 mg PO X1 ONE Stop: 08/06/25 07:06 Last Admin: 08/06/25 07:44 Dose: 81 mg Diltiazem HCl (Diltiazem Inj 5 Mg/Ml Vial 5 Ml) 10 mg IV X1 ONE Stop: 08/06/25 07:47 Last Admin: 08/06/25 07:50 Dose: 10 mg Fentanyl Citrate (Fentanyl Cit Inj 50 Mcg/Ml Amp 2ml) 25 mcg IVP X1 ONE Stop: 08/06/25 07:09 Last Admin: 08/06/25 07:37 Dose: 25 mcg Heparin Sodium (Porcine) (Heparin Sod Inj 5000 Unit/Ml Vial) 4,000 unit IV X1 ONE; Protocol Stop: 08/06/25 11:56 Last Admin: 08/06/25 14:05 Dose: 4,000 unit Lactated Ringer's (Lactated Ringers) 1,000 mls @ 999 mls/hr IV .Q1H1M ONE Stop: 08/06/25 08:07 Last Infusion: 08/06/25 08:43 Dose: Infused Assessment & Plan Plan Patient is a 60-year-old F with a PMH of T2DM, HTN, and depression who presented on 08/06/2025 with a chief complaint of chest pressure. Patient was admitted for the work-up and management of new-onset atrial fibrillation with RVR and NSTEMI. #New-onset atrial fibrillation with rapid ventricular response #Troponinemia #NSTEMI, type I vs. type II Patient presented on 08/06/25 with a chief complaint of chest pressure and was found to have atrial fibrillation with RVR 124 on same-day EKG Symptoms onset during sleep and no previous similar episodes reported, does not follow-up with a machine silk screen printer out-patient 08/06 troponin initially 0.082 but up-trended to 0.123 on the same day 08/06 CXR positive for vascular congestion but negative for pneumonia or pulmonary edema 08/06 venous Doppler negative for DVT and 08/06 chest CTA negative for pulmonary embolism 08/06 echo showed EF 60-65%, mild aortic valve sclerosis w/o stenosis or regurgitation, trace mitral valve regurgitation, and mildly enlarged left atrium Significant family history of cardiovascular disease in parents and siblings [id number] Score: 3, HAS-BLED Score: 0 s/p diltiazem 10 mg IV x 1 given in the ED which reduced the rate of atrial fibrillation from 124->96 but rhythm remained irregularly irregular Dx: -08/07 cardiac catheterization pending, showed ___ Rx: -Heparin gtt (hold at midnight) -NPO after midnight -Cardiac catheterization planned for 08/07 to check for stenosis due to patient's strong family history of cardiovascular disease and up-trending troponin -Trend troponin #Hx of hypertension 08/06 admission BP 146/74 Per patient report, on home lisinopril Rx: -Continue to monitor BP #T2DM 08/06 admission blood glucose Dx: -Hemoglobin A1c ordered, ___ Rx: -Continue to monitor blood glucose -Will consider starting ISS if blood glucose levels remain uncontrolled #Depression Per patient report, on home paroxetine Rx: -Restart home medications after medication reconciliation complete #Rib fracture 08/06 chest CTA showed subacute fracture of the right posterior 11th rib Rx: -Pain management as needed Hospital Management: Disposition: Tele Diet: NPO GI Prophylaxis: Not Indicated Bowel Prophylaxis: None DVT Prophylaxis: Heparin gtt CODE STATUS: Full Code I have examined the patient and conferred with my attending, Dr. Baker, and my senior resident, Dr. Teran, regarding them. Arpit Nguyen DO PGY-1 Internal Medicine Attending Provider Attestation/Addendum I have discussed and was present for the essential components of the history, physical examination, diagnosis, and treatment plan with the resident. I agree with the patient's care as documented by the resident and amended herein by me. Nitin Baker DO. Although this document has been carefully reviewed, there may still be some phonetic and other typographical errors. These errors are purely grammatical due to imperfections in the software program and should not be construed in any way to compromise the substance of the patient's medical care during this visit.
[2025-08-06 19:11] LABS: Troponin I 0.181 ng/mL (0.0-0.045)
[2025-08-06] MEDS: ACETAMINOPHEN 325 MG TABLET 650 MG PO (19:23)
[2025-08-06] MEDS: INSULIN DEGLUDEC 5 UNIT/0.05 ML (PER 5 UNITS) 10 UNIT SC (20:14)
[2025-08-06] MEDS: INSULIN LISPRO (AdmeLOG) 1 UNIT/0.01 ML UNIT SC (20:15)
--- NOTE | 2025-08-06 21:00 | PC.NURSE ---
Patient does know her home medications to clarify. Does remember some medications but not dosage and frequency. Family will bring in her medication bottles in am tomorrow. Will communicate to the day nurse to verify the medications tomorrow.
[2025-08-06 21:12] LABS: Partial Thromboplastin Time 27.6 Seconds (22.0-36.0)
[2025-08-06] MEDS: HEPARIN SOD INJ 5000 UNIT/ML VIAL 4000 UNIT IVP (21:35)
[2025-08-07] VITALS (15 sets, daily range): BP systolic 98–186; BP diastolic 58–101; PULSE 57–76; RESP 16–22; TEMP 36.1–36.7; O2SAT 93–98; BMI 44.4
[2025-08-07] MEDS: ACETAMINOPHEN 325 MG TABLET 650 MG PO (00:58)
[2025-08-07 01:41] LABS: Troponin I 0.153 ng/mL (0.0-0.045)
[2025-08-07 03:59] LABS: Basophils # (Auto) 0.1 Thou/mm3 (0.0-0.2); Basophils % (Auto) 1 % (0-2.5); Eosinophils # (Auto) 0.4 Thou/mm3 (0.0-0.5); Eosinophils % (Auto) 3 % (0-10); Hematocrit 35.1 % (36.0-46.0); Hemoglobin 11.4 g/dL (12.0-16.0); Immature Granulocytes Auto 0.07 Thou/mm3 (0.00-0.00); Lymphocytes # (Auto) 4.6 Thou/mm3 (1.0-4.8); Lymphocytes % (Auto) 44 % (10-50); Mean Corpuscular HGB Conc 32.5 g/dl (31.0-37.0); Mean Corpuscular Hemoglobin 28.8 pg (25.0-35.0); Mean Corpuscular Volume 89 fL (80-100); Monocytes # (Auto) 0.7 Thou/mm3 (0.0-0.8); Monocytes % (Auto) 6 % (0-12); Neutrophils # (Auto) 4.8 Thou/mm3 (1.8-7.7); Neutrophils % (Auto) 46 % (37-80); Nucleated Red Blood Cell # 0.00 Thou/mm3 (0.00-0.00); Nucleated Red Blood Cell % 0 /100 WBC (0); Platelet Count 305 Thou/mm3 (140-440); RDW Standard Deviation 51.8 fL (36.4-46.3); Red Blood Count 3.96 Miln/mm3 (4.00-5.20); White Blood Count 10.4 Thou/mm3 (3.6-11.0)
[2025-08-07 04:14] LABS: Partial Thromboplastin Time 33.5 Seconds (22.0-36.0)
[2025-08-07 04:17] LABS: Glucose Estimated Average 212 mg/dL (80-131); Hemoglobin A1C 9.0 % Hgb (4.8-6.0)
[2025-08-07 04:21] LABS: Alanine Aminotransferase 48 U/L (10-49); Albumin, Serum 3.8 gm/dL (3.4-4.8); Albumin/Globulin Ratio 1.8 (1.2-2.2); Alkaline Phosphatase 85 U/L (46-116); Anion Gap 10 (7-16); Aspartate Amino Transferase 38 U/L (0-34); BUN/Creatinine Ratio 34 Ratio (12-20); Bilirubin,Total 0.2 mg/dL (0.3-1.2); Blood Urea Nitrogen 27 mg/dL (9-23); Calcium 9.1 mg/dL (8.3-10.6); Calcium (Corrected) 9.3 mg/dL (8.5-10.1); Carbon Dioxide 23.3 mMol/L (20.0-31.0); Chloride 107 mMol/L (98-107); Creatinine (Component) 0.8 mg/dL (0.6-1.3); Estimated Creatinine Clearance 90.3 mL/min (>60); Globulin 2.1 gm/dL (2.3-3.5); Glucose 139 mg/dL (74-106); Magnesium 1.9 mg/dL (1.6-2.6); Osmolality,Calculated 286 (275-295); Phosphorous 3.9 mg/dL (2.4-5.1); Potassium 4.2 mMol/L (3.4-5.1); Sodium 140 mMol/L (136-145); Total Protein 5.9 gm/dL (5.7-8.2); eGFR > 60 See Note
[2025-08-07] MEDS: HEPARIN SOD INJ 5000 UNIT/ML VIAL 4000 UNIT IVP (04:40)
--- NOTE | 2025-08-07 09:22 | PC.NURSE ---
patient awake, alert, breathing unlabored, s/p LHC by Dr. Henao, report given to Diony EATON, patient to recover until TR band off. Heparin drip and aspirin to be discontinued per Dr henao.
--- NOTE | 2025-08-07 10:00 | PC.NURSE ---
Recvd report from Brendon, patient sleeping in bed. Looks comfortable, TR band to right wrist.No bleeding or hematoma noted. Vital Signs WNL. Will continue to monitor.
--- NOTE | 2025-08-07 10:59 | PC.NURSE ---
Took patient up to floor via gurney. Patient alert, awake and oriented. VSS. patient in a pleasant mood. No complaints about her procedure or anything at the moment. Portia RN at bedside. Patient got up to use restroom with this RN assisting with gait. Patient escorted to bed, bed alarm turned on. Call light and personal belongings within reach.
[2025-08-07] MEDS: Magnesium Sulfate 2 GM Ivpb 2 GM/50 ML BAG IV (12:33)
--- NOTE | 2025-08-07 14:36 | ESPR_ITS ---
<Statement entered by Ananya Perez MD - 08/09/25 15:33> The patient was personally examined by me underwent coronary angiogram that showed that no significant obstructive CAD normal coronary arteries patient's troponin elevation type II troponin due to A-fib RVR. Patient did have an A-fib episode 1 episode only possibly due to sleep apnea obesity [id number] score is 3 including female sex essentially 2 risk of stroke is 2% and she had 1 episode hence I do not see a need for a prolonged anticoagulation if she has recurrent episodes of A-fib after treatment of sleep apnea may consider anticoagulation for now discharge the patient, medical management to have follow-up as an outpatient with primary care physician recommend strongly to evaluate for sleep apnea and possible CPAP if indicated. If she has recurrent A-fib episodes will consider recommending anticoagulation with NOACs. Evaluate the patient with resident physician treatment plan recommendation is formulated agree with the treatment plan recommendation as documented by Dr. Ozzy Best PGY1 as follows we are concerned patient is stable to be discharged later in the day Documentation for date of: 08/07/25 Subjective Subjective Interval history: Patient seen and examined today at bedside postop; cath showed no blockages. A fib likely due to sleep apnea not cardiac. give fleicanide; eliquis not indicated. Exam Vital Signs Temp Pulse Resp BP Pulse Ox O2 Del Method 97.6 F 59 L 20 163/96 H 96 Room Air 08/07/25 12:00 08/07/25 12:00 08/07/25 12:00 08/07/25 12:00 08/07/25 12:00 08/07/25 12:00 Narrative Exam General: A/O x3, no acute distress, well-nourished, well-developed Eyes: PERRL, EOMI. Anicteric, vision grossly intact. Ears: No ear pain, no ear discharge, Hearing grossly intact. Nose: No nasal discharge. Mouth/Throat: Moist mucous membranes, no redness, no lesions. Neck: Neck supple, non-tender, no cervical lymphadenopathy. Lungs: Clear MATTY to auscultation and percussion, No accessory muscle use. Cardio: Normal S1/S2, regular rhythm, no murmurs, no JVD or carotid bruits. Abdomen: Soft, non-tender, no palpable masses, peristalsis present, no guarding or rebound. Extremities: Symmetrical, no significant deformities, no peripheral edema , non-tender, peripheral pulses present. Skin: No rashes, no lesions, warm to touch. Neuro: No focal neurological deficits. Psych: Cooperative, appropriate mood and effect. Objective Labs 08/07/25 03:45 08/07/25 03:45 Labs: Laboratory Results - last 24 hr 08/06/25 08/06/25 08/07/25 18:12 20:19 00:55 WBC RBC Hgb Hct MCV MCH MCHC RDW Std Deviation Plt Count Neut % (Auto) Lymph % (Auto) [place] % (Auto) Eos % (Auto) Baso % (Auto) Neut # (Auto) Lymph # (Auto) [place] # (Auto) Eos # (Auto) Baso # (Auto) Immature Gran # (Auto) Absolute Nucleated RBC Immature Gran % Nucleated RBC % APTT 27.6 Sodium Potassium Chloride Carbon Dioxide Anion Gap BUN Creatinine Estim Creat Clear Calc eGFR BUN/Creatinine Ratio Glucose Estimated Ave Glu mg/dL Hemoglobin A1c Calculated Osmolality Calcium Corrected Calcium Phosphorus Magnesium Total Bilirubin AST ALT Alkaline Phosphatase Troponin I 0.181 H* 0.153 H* Total Protein Albumin Globulin Albumin/Globulin Ratio 08/07/25 03:45 WBC 10.4 RBC 3.96 L Hgb 11.4 L Hct 35.1 L MCV 89 MCH 28.8 MCHC 32.5 RDW Std Deviation 51.8 H Plt Count 305 D Neut % (Auto) 46 Lymph % (Auto) 44 [place] % (Auto) 6 Eos % (Auto) 3 Baso % (Auto) 1 Neut # (Auto) 4.8 Lymph # (Auto) 4.6 [place] # (Auto) 0.7 Eos # (Auto) 0.4 Baso # (Auto) 0.1 Immature Gran # (Auto) 0.07 H Absolute Nucleated RBC 0.00 Immature Gran % 1 H Nucleated RBC % 0 APTT 33.5 Sodium 140 Potassium 4.2 Chloride 107 Carbon Dioxide 23.3 Anion Gap 10 BUN 27 H Creatinine 0.8 D Estim Creat Clear Calc 90.3 eGFR > 60 BUN/Creatinine Ratio 34 H Glucose [address] Glu mg/dL 212 H Hemoglobin A1c 9.0 H Calculated Osmolality 286 Calcium 9.1 Corrected Calcium 9.3 Phosphorus 3.9 Magnesium 1.9 Total Bilirubin 0.2 L AST 38 H ALT 48 Alkaline Phosphatase 85 D Troponin I Total Protein 5.9 Albumin 3.8 D Globulin 2.1 L Albumin/Globulin Ratio 1.8 Quality Measures Quality Measures none Assessment & Plan Assessment Current Active Medications: Generic Name Dose Route Start Last Admin Trade Name Freq PRN Reason Stop Dose Admin Acetaminophen 650 mg 08/06/25 19:16 08/06/25 19:23 Acetaminophen 325 Mg Tablet PO 09/05/25 19:15 650 mg Q6HR PRN Administration PAIN SCALE 1-3 (mild Dextrose 25 ml 08/06/25 15:22 Dextrose 50%-Water Inj 50 Ml Syringe IV 09/05/25 15:21 Q15MIN PRN BG 50-70 responsive npo pt Dextrose 50 ml 08/06/25 15:22 Dextrose 50%-Water Inj 50 Ml Syringe IV 09/05/25 15:21 Q15MIN PRN BG <50 OR BG <70 & pt unresponsive Glucagon 1 mg 08/06/25 15:22 Glucagon Inj 1 Mg Vial IM Q15MIN PRN BG <70, and no IV access Insulin Degludec 10 unit 08/06/25 21:00 08/07/25 08:47 Insulin Degludec 5 Unit/0.05 Ml (Per 5 Units) SC 09/05/25 20:59 Not Given QDAY [facility] Insulin Human Lispro 0 unit 08/06/25 15:30 08/07/25 12:19 Insulin Lispro (Admelog) 1 Unit/0.01 Ml Unit SC 09/05/25 15:29 Not Given ACHS [facility] Protocol Plan Patient is a 60 yo F with PMH of HTN, T2DM, depression presenting to hospital for new-onset chest pain/palpitations. Cardiology consulted secondary to new onset A-fib. #New-onset atrial fibrillation No history of chest pain/shortness of breath. Strong family history of CAD. CXR showed no pneumonia, pulomary edema and mild/moderate vascular congestion. Venous duplex scan negative for DVT, and CTA negative for PE Troponin initially 0.082 on admission; last troponin was 0.123 Echo showed EF 60-65% EKG showed A-fib with rate 96 post diltiazem [id number] score 2, HAS-Bled score 0 cath showed no blockages Plan: fleicanide 100 bid treat as one time event, if recurrent consider eliquis f/u 1 week #Hx of Hypertension BP 146/64 on admission; latest measurement showed 142/77 Plan: Monitor BP and treat as needed #T2DM #Depression #Musculoskeletal pain #Rib fracture Per primary team This case was discussed with my attending physician, Dr. Perez. Gary Best, PGY1
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
--- NOTE | 2025-08-08 14:50 | ESOP_ITS ---
RE: HIEU SMITH : 1965 DATE OF OPERATION: 08/07/2025 PROCEDURES PERFORMED: 1. Diagnostic left heart cardiac catheterization, selective coronary angiogram, left ventriculogram, CPT 98008. 2. Conscious sedation 30 minute duration. 3. Ultrasound-guided access right radial artery. DIAGNOSES: Acute cwl-SX-afiyock elevation myocardial infarction, atrial fibrillation, and chest pain. HISTORY AND INDICATIONS: Patient is a 60-year-old lady with a history of hypertension, diabetes, obesity, and metabolic syndrome who came to the hospital with atrial fibrillation with rapid ventricular heart rate with severe chest pain and delta troponin went up to 0.1. Hence, coronary angiogram was recommended to rule out significant obstructive coronary artery disease as a cause of her symptoms before discharging patient because of acute troponin elevation and possible myocardial infarction. PROCEDURE DETAILS: Patient was brought to the cardiac catheterization laboratory. She was given 2 mg of Versed and 50 mcg of fentanyl for conscious sedation. The patient's right radial area was prepped and draped in a sterile fashion. Right radial artery was cannulated with micropuncture technique after local anesthesia is given. Ultrasound guidance was used and a 6-[place] Glidesheath was introduced. Next, selective right coronary angiogram was performed by TIG 4 diagnostic catheter, and selective left coronary angiogram was performed by JL 3.5 diagnostic catheter. LEFT HEART CATHETERIZATION: Left ventriculogram was performed by TIG 4 diagnostic catheter. Left ventricular angiogram was performed. Patient tolerated the procedure well, no complications. TR band was applied, hemostasis was achieved. Radial cocktail was given after cannulation of the right radial artery. Cardiac catheterization showed following findings: Hemodynamics: Left ventricular pressure is 120/10, aortic pressure 120/80, no gradient across the aortic valve. Left ventriculogram showed normal ventricular wall motion, ejection fraction of 70%. Coronary angiogram showed following findings: Right coronary is large dominant, gives a posterior descending artery, appears normal. Left coronary system: Left main coronary is normal, left anterior descending artery is normal, tortuosity is seen. Circumflex artery is codominant, appeared normal. SUMMARY OF FINDINGS: 1. Nonobstructive normal epicardial coronary arteries. 2. Normal left ventricular systolic function. RECOMMENDATIONS: Patient should be reassured about the absence of any significant obstructive coronary artery disease. Recommend to continue medical management and patient should have hypertension and diabetes control and also recommend as an outpatient to have sleep study, most likely etiology for AFib could be sleep apnea. Since the patient has symptomatic AFib, recommend patient to be treated with flecainide 100 mg twice daily for prevention of recurrence of atrial fibrillation. Her CHADS-VASc score is 1, hence patient does not require any anticoagulation. CHADS-VASc score is 2 in female does not require anticoagulation, risk of stroke is only 1%. DT: 09:15:43 TT: 09:34:00 Ref: [id number] - TID: [id number]
== END 2025-08-07 17:48 | disposition home or self-care (01) | DRG 192 ==
LOC: SERX 11:55 → SERHOLD 12:25 → S2NX 17:09
PROVIDERS: Internal Medicine Cardiovascular Disease; Student in an Organized Health Care Education/Training Program; Admitting Provider Student in an Organized Health Care Education/Training Program; Emergency Provider Emergency Medicine; PCP Physician Assistant; Visit Provider Student in an Organized Health Care Education/Training Program
PROC: 4A023N7 Measurement of Cardiac Sampling and Pressure, Left Heart, Percutaneous Approach (ICD-10-PCS; principal; 2025-08-07 08:30)
DX: I48.0 Paroxysmal atrial fibrillation (principal); S22.31XA Fracture of one rib, right side, initial encounter for closed fracture; I21.A1 Myocardial infarction type 2; I35.8 Other nonrheumatic aortic valve disorders; E11.9 Type 2 diabetes mellitus without complications; I10 Essential (primary) hypertension; F32.A Depression, unspecified; E66.9 Obesity, unspecified; G47.30 Sleep apnea, unspecified; M25.511 Pain in right shoulder; D64.9 Anemia, unspecified; M79.604 Pain in right leg; R74.01 Elevation of levels of liver transaminase levels; Z82.49 Family history of ischemic heart disease and other diseases of the circulatory system; Z90.49 Acquired absence of other specified parts of digestive tract; Z68.41 Body mass index [BMI] 40.0-44.9, adult; Z79.4 Long term (current) use of insulin; Z79.84 Long term (current) use of oral hypoglycemic drugs; Z79.82 Long term (current) use of aspirin; Z79.899 Other long term (current) drug therapy; W01.0XXA Fall on same level from slipping, tripping and stumbling without subsequent striking against object, initial encounter
CPT/HCPCS: 36415; 71045; 71275; 73030; 80053; 80307; 81001; 83036; 83690; 83735; 83880; 84100; 84439; 84443; 84484; 85025; 85379; 85610; 85730; 87077; 87086; 87186; 93005; 93306; 93971; 96361; 96365; 96366; 96375; 99152; 99153; 99284; A4649; C1769; C1887; C1894; J0153; J0168; J0461; J1643; J1644; J1815; J2250; J2312; J2371; J2405; J3010; J3475; J3490; J7120; Q9967; A9270; C1725; J2305